=== PATIENT | female | born 1990 | race Two or more races ===

== ENCOUNTER 2016-08-19 09:08 | Emergency (ER) | payer OTHER ==
[~2016-08-19] VITALS: Ht 154.9 cm; Wt 40.9 kg
[2016-08-19 11:51] VITALS: BP 110/64
== END 2016-08-19 11:51 | disposition home or self-care (01) ==
LOC: ED 09:08
DX: K12.2 Cellulitis and abscess of mouth (principal); J02.9 Acute pharyngitis, unspecified; Z88.0 Allergy status to penicillin; R05 Cough
CPT/HCPCS: J1100